=== PATIENT | female | born 1980 | race Caucasian/White ===

== ENCOUNTER 2020-05-29 15:55 | Emergency (ER) | payer BC, SELFPAY ==
--- NOTE | ~2020-05-29 | XR_ITS ---
EXAMINATION: XR chest 2V 05/29/2020 16:30 INDICATION: Left-sided chest pain PROCEDURE: 2 view chest COMPARISON: No prior studies for comparison. FINDINGS: The lungs are clear. The cardiomediastinal silhouette is within normal limits. There are no pleural effusions. There is no pneumothorax suspected. IMPRESSION: 1: NO ACUTE CARDIOPULMONARY DISEASE. Reviewed, dictated and finalized at location A.
--- NOTE | 2020-05-29 15:56 | ECG_ITS ---
Measurements Intervals [place] Rate: 85 P: 49 WA: 121 QRS: 54 QRSD: 92 T: 22 QT: 372 QTc: 444 Interpretive Statements SINUS RHYTHM DELAYED PRECORDIAL R/S TRANSITION BORDERLINE T WAVE ABNORMALITY- ANTERIOR LEADS BASELINE ARTIFACT- I, II, III, AVR, AVL, AVF BORDERLINE ECG Electronically Signed On 05-29-2020 16:09:47 CDT by Jose Vela D.O.
[2020-05-29 15:58] VITALS: BP 135/82; PULSE 97; RESP 17; TEMP 36.4; O2SAT 100
[2020-05-29 16:16] LABS: Basophils Percent Auto 0.2 % (0.2-1.2); Eosinophils Percent Auto 0.6 % (0-4.4); Hematocrit 40.5 % (37.0-47.0); Hemoglobin 13.5 g/dL (12.0-15.0); Immature Granulocyte Absolute 0.01 K/mm3 (0.00-0.031); Immature Granulocyte Percent A 0.2 % (0-0.5); Lymphocytes Absolute Auto 2.43 K/mm3 (0.9-3.2); Lymphocytes Percent Auto 38.6 % (18.3-44.2); Mean Corpuscular HGB Conc 33.3 g/dl (32-36); Mean Corpuscular Volume 93.1 fl (80-100); Mean Platelet Volume 9.3 fl (7.4-10.4); Monocytes Absolute Auto 0.5 K/mm3 (0.1-0.6); Monocytes Percent Auto 7.1 % (2.6-8.5); Neutrophils Absolute Auto 3.4 K/mm3 (1.3-6.7); Neutrophils Percent Auto 53.3 % (45.5-73.1); Platelet Count Result 247 k/mm3 (150-375); Red Blood Count 4.35 M/mm3 (4.2-5.4); Red Cell Distribution Width 12.7 % (11.5-14.5); White Blood Count 6.3 K/mm3 (4.5-10.0)
[2020-05-29 16:25] LABS: INR 0.9; Partial Thromboplastin Time 25.3 SECONDS (22.3-36.8); Prothrombin Time 12.4 Seconds (11.1-14.7)
[2020-05-29 16:27] LABS: Anion Gap 8 mmol/L (8-16); Blood Urea Nitrogen 11 mg/dL (7-17); Calcium 9.6 mg/dL (8.4-10.2); Carbon Dioxide 31 mmol/L (22-30); Chloride 102 mmol/L (98-107); Estimated CRCL calculation 77 ml/min; Estimated Glomerular Filt Rate > 60; Glucose 106 mg/dL (65-105); Potassium 3.6 mmol/L (3.4-5.0); Sodium 141 mmol/L (137-145)
[2020-05-29 16:47] LABS: Troponin I < 0.012 ng/mL (0.000-0.034)
[2020-05-29 17:31] VITALS: BP 121/89; PULSE 71; RESP 21
[2020-05-29 17:38] VITALS: O2SAT 100
--- NOTE | 2020-05-29 17:41 | ED.GENADULT ---
HPI - General Adult General Chief complaint: Chest Pain Stated complaint: chest pain, arm tingling Time Seen by Provider: 05/29/20 17:10 Source: patient Mode of arrival: ambulatory Limitations: no limitations History of Present Illness HPI narrative: Patient is a 3-year-old female who presents to emergency department for evaluation of pain across the upper chest been present for 2 days patient notes she did have some tingling in the left arm is unsure as to the cause denies injury or trauma similar occurrence in the past or any reason for chest wall strain patient presents in no distress and has not taken anything for her symptoms denies URI symptoms or ill or sick contact Related Data Allergies Allergy/AdvReac Type Severity Reaction Status Date / Time No Known Allergies Allergy Unknown Verified 05/29/20 17:45 Review of Systems Review of Systems: All systems reviewed & are unremarkable except as noted in HPI and below PMFSH Surgical History Surgical History (Updated 05/29/20 @ 17:42 by Tadeo De Anda PA-C) History of dilatation and curettage Social History Social History (Updated 05/29/20 @ 17:42 by Tadeo De Anda PA-C) Smoking status: Never smoker Gender identity (if verbalized by the patient): Female Exam Narrative: Exam Narrative: GENERAL: Well-appearing, well-nourished, and in no acute distress. HEAD: Normocephalic, atraumatic. EYES: PERRLA and EOMI. ENT: Nares clear, no rhinorrhea or epistaxis. Mucous membranes moist. CHEST: Clear to auscultation. No respiratory distress. No wheezes rales or rhonchi HEART: Regular rate and rhythm. No murmur heard. Normal peripheral pulses. ABDOMEN: Soft, nontender, nondistended EXTREMITIES: Normal range of motion. No edema. SKIN: Warm, dry, no rash. NEURO: No focal deficits. Alert and oriented x3. PSYCH: Normal mood and affect. 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 patient mainly notes reproducible pain to the breast and chest wall patient also will be provided with primary care follow-up will be tried on anti-inflammatories for the pain unsure as to the etiology provided with reasons to return no high risk changes in the blood work or imaging ABCs and vital signs intact and stable Vital Signs Vital signs: Vital Signs Temperature 97.6 F 05/29/20 15:58 Pulse Rate 97 05/29/20 15:58 Respiratory Rate 17 05/29/20 15:58 Blood Pressure 135/82 05/29/20 15:58 Pulse Oximetry 100 05/29/20 15:58 Temperature 97.6 F 05/29/20 15:58 Pulse Rate 82 05/29/20 17:46 Respiratory Rate 21 H 05/29/20 17:31 Blood Pressure 121/89 05/29/20 17:31 Pulse Oximetry 100 05/29/20 17:38 Medical Decision Making MDM Narrative Medical decision making narrative: Patients EKGs and labs are without significant high risk changes. Cardiac risk factors were reviewed. Patient is felt likely to be low risk for ACS and reasonable for further risk stratification testing as an outpatient. Pain was not sudden or maximal in onset without tearing or ripping. quality. No other signs or symptoms to suggest aortic dissection. A low-risk Wells criteria is noted. PE is felt to be unlikely. No pneumonia or URI symptoms were seen on evaluation today. Patient is felt to b reasonable for continued evaluation as an outpatient. Vital Signs Vital Signs: Vital Signs Temperature 97.6 F 05/29/20 15:58 Pulse Rate 97 05/29/20 15:58 Respiratory Rate 17 05/29/20 15:58 Blood Pressure 135/82 05/29/20 15:58 Pulse Oximetry 100 05/29/20 15:58 Temperature 97.6 F 05/29/20 15:58 Pulse Rate 82 05/29/20 17:46 Respiratory Rate 21 H 05/29/20 17:31 Blood Pressure 121/89 05/29/20 17:31 Pulse Oximetry 100 05/29/20 17:38 Lab Data Result diagrams: 05/29/20 16:04 05/29/20 16:04 Labs: Lab Results 05/29/20 05/29/20
[2020-05-29 17:46] VITALS: BP 115/81; PULSE 81; PULSE 82; RESP 20
[2020-05-29 18:01] VITALS: BP 119/82; PULSE 75
== END 2020-05-29 18:30 | disposition home or self-care (01) ==
PROVIDERS: Emergency Medicine; Emergency Provider Emergency Medicine
DX: R07.9 Chest pain, unspecified (principal); R94.31 Abnormal electrocardiogram [ECG] [EKG]
CPT/HCPCS: 36415; 71046; 80048; 84484; 85025; 85610; 85730; 93005; 99284

== ENCOUNTER → 2020-05-31 17:46 | Outpatient (CLI) | payer BC, SELFPAY ==
--- NOTE | ~2020-05-31 | MM_ITS ---
EXAMINATION: MM screening jocelyn BI w mariola HISTORY: Screening TECHNIQUE: Craniocaudal and mediolateral oblique 3-D tomosynthesis images were obtained and synthetic 2-D images were generated. CAD analysis was submitted and interpreted. COMPARISON: No prior mammogram is available for comparison at this institution. BREAST PARENCHYMAL COMPOSITION: The breasts are heterogeneously dense, which may obscure small masses . FINDINGS: There is no evidence of suspicious mass, calcification, or architectural distortion to sugg est malignancy in either breast. There has been no suspicious interval change. IMPRESSION: 1. No mammographic evidence of malignancy. 2. Recommend routine screening mammography in one year. BI-RADS Category 1: Negative Reviewed, dictated and finalized at location A.
== END ==
PROVIDERS: Visit Provider Obstetrics & Gynecology
DX: Z12.31 Encounter for screening mammogram for malignant neoplasm of breast (principal)
CPT/HCPCS: 77063; 77067

== ENCOUNTER 2025-01-27 08:43 | Emergency (ER) | payer BC, SELFPAY ==
[2025-01-27 08:54] VITALS: BP 124/89; PULSE 100; RESP 16; TEMP 36.3; O2SAT 100
--- NOTE | 2025-01-27 09:59 | ED_ITS ---
HPI - Skin/Abscess/Foreign Bdy General Chief complaint: Skin/Abscess/Foreign Body Stated complaint: Rash all over Time Seen by Provider: 01/27/25 09:20 Source: patient and RN notes reviewed Mode of arrival: ambulatory Limitations: no limitations History of Present Illness HPI narrative: 44-year-old female presents [facility] complaining of full body rash that started yesterday. Patient reports it is very pruritic. Denies any recent illnesses, fevers, body aches, chills, swelling to lips, face, tongue, throat, wheezing, breathing problems, vomiting, or any other symptoms. Patient denies changing anything at home, she has never had this happen before. Patient has taken Zyrtec without relief. Patient denies taking any daily medications. Related Data Allergies Allergy/AdvReac Type Severity Reaction Status Date / Time No Known Allergies Allergy Unknown Verified 01/27/25 08:58 Review of Systems Review of Systems: CONSTITUTIONAL: Denies fever, chills, or sweats. EYES: Denies visual changes, redness, or discharge. ENT: Denies rhinorrhea, congestion, sore throat, or otalgia. CARDIOVASCULAR: Denies chest pain, palpitations, or edema. RESPIRATORY: Denies cough or dyspnea. GASTROINTESTINAL: Denies abdominal pain, nausea, vomiting, or diarrhea. GENITOURINARY: Denies dysuria or hematuria. SKIN: Positive for rash and itching. MUSCULOSKELETAL: Denies back pain, joint pain, or myalgia. NEUROLOGIC: Denies headache, numbness, or weakness. PSYCHIATRIC: Denies anxiety or depression. All other systems reviewed are negative, except as documented in HPI. [facility] Past Medical History Medical History Heartburn Surgical History Surgical History History of dilatation and curettage Social History Social History Smoking status: Never smoker Alcohol intake: current Drinks per week: 6 Substance use: never Substance use type: does not use Lack of Transportation: No Lack of Food: Never True Current Housing: I Have Housing Concerned About Future Housing: No Difficulty Paying Gas/Electric Bills: No Difficulty Paying for Meds: No Currently Unemployed: No Education: Associate Degree Difficulty w/ Childcare or Family Care: No Gender identity (if verbalized by the patient): Female Comments At the time of my signature, I reviewed and agree with the nursing past medical, surgical, social, and family history. There is no relevant family history pertinent to the patient complaint. Exam Narrative: GENERAL: This is a well-nourished, well-developed adult, in no apparent distress. They are non ill-appearing, nontoxic appearing. HEAD: normocephalic, atraumatic. EYES: Sclera clear/white. Conjunctiva normal. Vision is grossly intact. Extraocular movements intact EARS: External ears normal, Hearing grossly intact. NOSE: External nose normal THROAT: Mucous membranes moist, NECK: Neck supple, CARDIOVASCULAR: Regular rate and rhythm RESPIRATORY: Respiratory rate normal, respiratory effort nonlabored, no respiratory distress SKIN: Erythematous macular rash scattered throughout the patient's trunk, extremities, no rash on the face or neck. Nontender to palpate no area of fluctuance, no induration. it is pruritic. NEURO: awake, alert, and oriented to person, place and time. There were no obvious focal neurologic abnormalities. EXTREMITIES: No joint tenderness, effusion, or edema noted. BACK: Nontender without deformity. Course Course Level of Care: Express Care Visit Vital Signs Vital signs: Vital Signs Temperature 97.3 F L 01/27/25 08:54 Pulse Rate 100 01/27/25 08:54 Respiratory Rate 16 01/27/25 08:54 Blood Pressure 124/89 01/27/25 08:54 Pulse Oximetry 100 01/27/25 08:54 Temperature 97.3 F L 01/27/25 08:54 Pulse Rate 100 01/27/25 08:54 Respiratory Rate 16 01/27/25 08:54 Blood Pressure 124/89 01/27/25 08:54 Pulse Oximetry 100 01/27/25 08:54 MDM MDM Narrative Medical decision making narrative: Patient given a shot of Solu-Medrol for the rash. Will send patient home with prednisone. Advised patient take Zyrtec and Pepcid daily for next 5 days. Patient nontoxic appearing, no apparent distress, no respiratory distress, no breathing problems. Discussed physical exam findings. Advised supportive measures and signs/symptoms to go to the ER. Pt is appropriate for outpt treatment and f/u. Differential Diagnosis Differential Diagnosis: Allergic reaction, rash, viral exanthem, drug reaction Critical Care Time Critical Care Time Critical Care Time: No Discharge Plan Discharge Clinical Impression: Rash Patient Disposition: Home Condition: Stable Instructions: Acute Rash (ED) Additional Instructions: Start the prednisone tomorrow, your given a shot of Solu-Medrol today. Take the prednisone as directed. Take it in the morning and take it with food. You may use calamine lotion, camphor,, Benadryl cream as needed for itchiness symptoms. Take Zyrtec 10 mg 1 tablet daily for 5 days, take 20 mg of Pepcid 1 tablet daily for 5 days. Follow-up PCP in 3-5 days. If you develop any worsening redness, swelling, discharge, fevers, breathing problems, swelling to her face, tongue, lip, throat, wheezing, or any other concerns please go to the ER immediately. Patient Language: Danish Prescriptions: New prednisone 20 mg tablet 40 mg PO DAILY 5 Days Qty: 10 0RF Follow-up/Referrals: UNKNOWN,DOCTOR [Primary Care Provider] Time of Disposition: 09:34
== END 2025-01-27 09:42 | disposition home or self-care (01) ==
DX: R21 Rash and other nonspecific skin eruption (principal); R12 Heartburn
CPT/HCPCS: 96372; 99213; G0463; J2919